=== PATIENT | male | born 1975 | race Caucasian/White ===

== ENCOUNTER 2017-01-30 06:51 | Emergency (ER) | payer OTHER ==
[~2017-01-30] VITALS: Ht 157.5 cm; Wt 79.4 kg
--- NOTE | 2017-01-30 07:22 | NUR ---
PT BIB FRIEND FROM WORK, PT STATES A 300LB WALL FELL ON HIS LEFT FOOT 1 [employer]. LEFT FOOT RED, NO DEFORMITY NOTED. C/O PAIN AND TENDERNESS. PATIENT A/OX 4. BREATHING EVEN AND UNLABORED. NO SOB. VITALS STABLE. SAFETY AND COMFORT MEASURES IN PLACE. AWAITING MD ORDERS.
--- NOTE | 2017-01-30 07:25 | NUR ---
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
[2017-01-30 07:57] VITALS: BP 128/84
--- NOTE | 2017-01-30 07:58 | NUR ---
Patient discharged to home in stable condition. Written and verbal after care instructions given. Patient verbalizes understanding of instruction.
== END 2017-01-30 07:58 | disposition home or self-care (01) ==
LOC: ER 06:59
DX: S90.32XA Contusion of left foot, initial encounter (principal); I10 Essential (primary) hypertension; E78.00 Pure hypercholesterolemia, unspecified; E11.9 Type 2 diabetes mellitus without complications; W20.8XXA Other cause of strike by thrown, projected or falling object, initial encounter; Y93.89 Activity, other specified; Y92.89 Other specified places as the place of occurrence of the external cause; Y99.0 Civilian activity done for income or pay
CPT/HCPCS: 73630; 99284; A4606; Z7610